=== PATIENT | female | born 1985 | race Caucasian/White ===

== ENCOUNTER → 2016-07-04 | Outpatient (CLI) | payer BC ==
--- OUTSIDE RECORDS SUMMARY | 2016-07-04 14:56 | XMS REPORT ---
Author Author IVAN FREIRE [facility] eClinicalWorks Address Unknown Phone Unavailable Care Team Providers Care Observation Assistant Name Role Phone IVAN FREIRE Unavailable Allergies No Known Allergies Problems Problem Type Condition ICD-9 Code Onset Dates Condition Status Problem Abnormal weight gain 783.1 Active Problem Unspecified disorder of skin and subcutaneous tissue 709.9 Active Problem Menstrual migraine, without mention of intractable migraine without mention of status migrainosus 346.40 Active Problem Unspecified breast screening V76.10 Active Problem General counseling for initiation of other contraceptive measures V25.02 Active Problem Headache 784.0 Active Problem Other malaise and fatigue 780.79 Active Problem General counseling for prescription of oral contraceptives V25.01 Active Problem Screening for malignant neoplasm of the cervix V76.2 Active Medications Medication Code System Code Instructions Start Date End Date Status Dosage Doxycycline Hyclate [facility] [address]-09 100 MG Orally Once a day Jan 29, 2015 1 capsule Results No Known Results Summary Purpose eClinicalWorks Submission
== END ==
LOC: ONC 14:41 → EDSTATUS 15:21
PROVIDERS: ATTEND Nurse Practitioner Adult Health
DX: Z80.0 Family history of malignant neoplasm of digestive organs (principal); Z80.3 Family history of malignant neoplasm of breast
CPT/HCPCS: 99213

== ENCOUNTER → 2016-10-10 | Outpatient (CLI) | payer BC ==
--- NOTE | 2016-10-10 18:23 | Diagnostic Imaging Report ---
INDICATION: Evaluation for size and dates. TECHNIQUE: Multiple real-time grayscale images were obtained of the gravid uterus. CORRELATION STUDY: None FINDINGS: Single viable intrauterine currently in variable presentation. There appears to be normal amount of amniotic fluid. The placenta is low-lying along its posterior aspect and does extend to the level of the cervix, may be reflective of underlying previa but somewhat indeterminate. anatomical structures have an unremarkable appearance. However, the cardiac structures cannot be well assessed at this time. Biometrical measurements are as follows: Biparietal diameter 4.61 cm, age 20 weeks 0 days . Head circumference 17.40 cm, age 20 weeks 0 days . Abdominal circumference 14.04 cm, age 19 weeks 3 days . Femur length 3.13 cm, age 19 weeks 6 days . Sonographic estimated age: 19 weeks 6 days. Sonographic estimated date of delivery: 02/28/2017. heart rate: 138 BPM Estimated Weight: 303 gm (+/- 44 gm) LMP Percentile: 25th% IMPRESSION: 1. Single intrauterine in a variable presentation. Sonographic estimated age of 19 weeks 6 days for an estimated date of delivery of 02/28/2017. 2. Very low-lying placenta with previa not excluded at this time. 3. Cardiac structures not well assessed on anatomical assessment. Dictated by: Dictated on workstation # [id number]
== END ==
LOC: RAD 17:24
PROVIDERS: ATTEND Obstetrics & Gynecology
DX: Z36 Encounter for antenatal screening of mother (principal); Z3A.19 19 weeks gestation of pregnancy
CPT/HCPCS: 76805

== ENCOUNTER → 2016-11-28 | Outpatient (CLI) | payer BC ==
--- NOTE | 2016-11-28 16:21 | Diagnostic Imaging Report ---
INDICATION: Followup low-lying placenta and four-chamber view TECHNIQUE: Multiple real-time grayscale images were obtained over the gravid uterus. COMPARISON: 10/10/16 FINDINGS: heart rate is 152 beats per minutes. The placenta is posterior and covers the internal os (placenta previa). The four-chamber view appears normal. A normal amount of amniotic fluid is seen. IMPRESSION: Placenta previa. Dr. Landaverde was informed of the findings at the time of dictation. Dictated by: Dictated on workstation # [id number]
== END ==
LOC: RAD 12:46
PROVIDERS: ATTEND Obstetrics & Gynecology
DX: O44.02 Complete placenta previa NOS or without hemorrhage, second trimester (principal); Z3A.00 Weeks of gestation of pregnancy not specified
CPT/HCPCS: 76816

== ENCOUNTER → 2016-12-27 | Outpatient (CLI) | payer BC ==
[~2016-12-27] MED LIST: DOCU100C37 PO; FERR-74 PO; HYDR-3812 PO; IBUP-1773 PO; PREN1TAB86 PO
--- NOTE | 2016-12-27 14:01 | Diagnostic Imaging Report ---
INDICATION: . TECHNIQUE: Multiple Real-time grayscale images were obtained over the gravid uterus. COMPARISON: None FINDINGS: There is a single living intrauterine is cephalic presentation. There is a normal volume of amniotic fluid. The placenta is seen in the lower uterine segment posteriorly. There does appear to be at least a marginal previa. The heart rate is 139 BPM and regular. IMPRESSION: Findings are suspect for an at least marginal placenta previa. Recommend clinical correlation and followup ultrasound as clinically warranted. Dictated by: Dictated on workstation # [id number]
== END ==
LOC: RAD 10:11
PROVIDERS: ATTEND Obstetrics & Gynecology
DX: Z36 Encounter for antenatal screening of mother (principal); Z3A.00 Weeks of gestation of pregnancy not specified
CPT/HCPCS: 76816

== ENCOUNTER 2017-01-31 10:10 | Inpatient (IN) | payer BC ==
[~2017-01-31] VITALS: Ht 160 cm; Wt 98.1 kg
[2017-01-31 10:13] VITALS: BP 127/89
[2017-01-31] MEDS ORDERED: LACTATED RINGERS 1,000 ML IV ONE (10:15)
[2017-01-31] MEDS: LACTATED RINGERS 1,000 ML IV PRN ×2 (10:30→11:55)
[2017-01-31] MEDS ORDERED: FAMOTIDINE 20MG/2ML IV (PEPCID) ONE (10:38)
[2017-01-31] MEDS ORDERED: CITRIC ACID/SOB CIT (BICITRA) 30 ML UDC ONE (10:38)
[2017-01-31] MEDS ORDERED: METOCLOPRAMIDE INJ 10 MG/2 ML (REGLAN) ONE (10:38)
[2017-01-31] MEDS ORDERED: ceFAZolin 2 GM/50 ML NS 50 ML ONE (10:39)
[2017-01-31] MEDS ORDERED: CITRIC ACID/SOB CIT (BICITRA) 30 ML UDC PO ONE (10:45)
[2017-01-31] MEDS ORDERED: FAMOTIDINE 20MG/2ML IV (PEPCID) IV ONE (10:45)
[2017-01-31] MEDS ORDERED: CATHETER FLUSH 10 ML SYR IV PRN (10:45)
[2017-01-31] MEDS ORDERED: METOCLOPRAMIDE INJ 10 MG/2 ML (REGLAN) IV ONE (10:45)
[2017-01-31 10:54] LABS: BASOPHILS % (AUTO) 0 % (0-10); EOSINOPHILS % (AUTO) 0 % (0-10); LYMPHOCYTES # (AUTO) 1.7 X 10^3 (1.0-4.0); LYMPHOCYTES % (AUTO) 14 % (12-44); MEAN CORPUSCULAR HEMOGLOBIN 32 PG (25-34); MEAN CORPUSCULAR HGB CONC 34 G/DL (32-36); MEAN CORPUSCULAR VOLUME 94 FL (80-99); MEAN PLATELET VOLUME 10.8 FL (7.4-10.4); MONOCYTES # (AUTO) 0.9 X 10^3 (0.0-1.0); MONOCYTES % (AUTO) 8 % (0-12); NEUTROPHILS # (AUTO) 9.6 X 10^3 (1.8-7.8); NEUTROPHILS % (AUTO) 78 % (42-75); PLATELET COUNT 220 10^3/uL (130-400); RED BLOOD COUNT 4.02 10^6/uL (4.35-5.85); RED CELL DISTRIBUTION WIDTH 13.3 % (10.0-14.5); WHITE BLOOD COUNT 12.3 10^3/uL (4.3-11.0)
[2017-01-31] MEDS ORDERED: ceFAZolin 2 GM/50 ML NS 50 ML IV ONE (11:00)
--- NOTE | 2017-01-31 11:04 | History & Physical-OB ---
OB - Chief Complaint & HPI Date/Time Date of Admission: Date of Admission: Jan 31, 2017 at 10:10 am Time Seen by Provider: 10:30 Chief Complaint/History OB-Reason for Admission/Chief: Bleeding and contractions with marginal previa Hx : 1 Hx Para: 0 Expected Date of Delivery: Jan 27, 2027 Gestational Age in Weeks: 36 Gestational Age in Days: 1 Other reason for admission: Presented with vaginal bleeding and cramping with known marginal previa at 36 weeks Admission Nurse Assessment Rev: Yes History of Labs O pos Antibody neg RI RPR NR HBsAg NR HIV NR GC neg GBS neg Allergies and Home Medications Allergies Coded Allergies: Sulfa (Sulfonamide Antibiotics) (Verified Allergy, Intermediate, hives, ) OB - History Hx of Present Care: Yes Ultrasounds: Normal mid trimester US (complete previa that transitioned to marginal posterior but <1 cm away from os last week on US.) Obstetrical Complications: Other (Placenta previa) Medical Complications: None Patient Past Medical History n/a OB - Admission Exam Physical Exam Date Seen by Provider: Jan 31, 2017 Time Seen by Provider: 10:30 HEENT: NCAT Heart: Rhythm Normal Lungs: Clear Abdomen: Gravid Extremities: Normal Reflexes: Normal Heart Rate: 130's Accelerations: No Accelerations Decelerations: No Decelerations Short Term Variability: Present Attorney General Variability: Minimal (3-5) Contractions on Admission: 6-10 Minutes Apart Intensity: Mild Labs Laboratory Tests Test 01/31/17 10:30 Range/Units White Blood Count 12.3 H 4.3-11.0 10^3/uL Red Blood Count 4.02 L 4.35-5.85 10^6/uL Hemoglobin 12.8 11.5-16.0 G/DL Hematocrit 38 35-52 % Mean Corpuscular Volume 94 80-99 FL Mean Corpuscular Hemoglobin 32 25-34 PG Mean Corpuscular Hemoglobin Concent 34 32-36 G/DL Red Cell Distribution Width 13.3 10.0-14.5 % Platelet Count 220 130-400 10^3/uL Mean Platelet Volume 10.8 H 7.4-10.4 FL Neutrophils (%) (Auto) 78 H 42-75 % Lymphocytes (%) (Auto) 14 12-44 % Monocytes (%) (Auto) 8 0-12 % Eosinophils (%) (Auto) 0 0-10 % Basophils (%) (Auto) 0 0-10 % Neutrophils # (Auto) 9.6 H 1.8-7.8 X 10^3 Lymphocytes # (Auto) 1.7 1.0-4.0 X 10^3 Monocytes # (Auto) 0.9 0.0-1.0 X 10^3 Eosinophils # (Auto) 0.0 0.0-0.3 10^3/uL Basophils # (Auto) 0.0 0.0-0.1 10^3/uL OB - Assessment/Plan/Diagnosis Assessment Assessment: vaginal bleeding Plan Plan: Section Discharge Diagnosis Diagnosis: 31 yo @ 36.1 Marginal placenta previa GBS neg CALEB SIDDIQI DO Jan 31, 2017 11:04 am
[2017-01-31] MEDS ORDERED: fentaNYL INJECTION 100 MCG/2 ML AMP ONE (11:09)
[2017-01-31] MEDS ORDERED: OXYTOCIN/NORMAL SALINE 1,000 ML IV ONE (11:14)
[2017-01-31 11:30] VITALS: BP 131/93
[2017-01-31] MEDS ORDERED: PREN1TAB86 PO (11:31)
[2017-01-31] MEDS ORDERED: ONDANSETRON 4 MG/2 ML (SDV) Z0FRAN ONE (12:09)
--- OUTSIDE RECORDS SUMMARY | 2017-01-31 12:21 | XMS REPORT ---
Author Author IVAN FREIRE [facility] eClinicalWorks Address Unknown Phone Unavailable Care Team Providers Care Cuff Folder Name Role Phone IVAN FREIRE Unavailable Allergies [...] Date End Date Status Dosage Doxycycline Hyclate [facility] [address]-26 100 MG Orally Once a day Jan 29, 2015 1 capsule Results No Known Results Summary Purpose eClinicalWorks Submission
--- OUTSIDE RECORDS SUMMARY | 2017-01-31 12:22 | XMS REPORT ---
Author Author IVAN FREIRE [facility] eClinicalWorks Address Unknown Phone Unavailable Care Team Providers Care Missile Technician Name Role Phone IVAN FREIRE CP Unavailable Allergies, Adverse Reactions, Alerts Substance Reaction Event Type N.K.D.A. Info Not Available Non Drug Allergy Problems Problem Type Condition Code Onset Dates Condition Status Assessment Encounter for surveillance of contraceptive pills Z30.41 Active Problem Abnormal weight gain 783.1 Active Problem [...] Instructions Start Date End Date Status Dosage Seasonique [facility] [address]-02 0.15 mg-30 mcg (84)/10 mcg (7) Orally Once a day (disp brand as written) Mar 05, 2014 take 1 tablet Procedures Procedure Coding System Code Date Preventive Care Est Pt. Age 18-39 CPT-4 08993 Mar 27, 2015 Vital Signs Date/Time: Mar 27, 2015 Temperature 98.2 F Weight 180 lbs Height 63.5 in BMI 31.38 Index Blood Pressure Diastolic 60 mmHg Blood Pressure Systolic 110 mmHg Cardiac Monitoring Heart Rate 80 bpm Results No Known Results Summary Purpose eClinicalWorks Submission
--- OUTSIDE RECORDS SUMMARY | 2017-01-31 12:22 | XMS REPORT | Continuity of Care Document ---
Author Author [facility] Address Unknown Phone Unavailable Allergies Active Description Code Type Severity Reaction Onset Reported/Identified Relationship to Patient Clinical Status Yes sulfamethoxazole-trimethoprim Drug Allergy N/A N/A 07/08/2008 Medications Problems Date Dx Coded Attending Type Code Diagnosis Diagnosed By 03/25/2008 NGUYỄN CASIANO APRN 780.2 SYNCOPE AND COLLAPSE 03/25/2008 TAMY ONEILL DO 780.2 SYNCOPE AND COLLAPSE 07/08/2008 NGUYỄN CASIANO APRN 465.9 UPPER RESPIRATORY INFECTION ACUTE 07/08/2008 NGUYỄN CASIANO APRN A 786.2 cough 07/08/2008 TAMY ONEILL DO 465.9 UPPER RESPIRATORY INFECTION ACUTE 07/08/2008 TAMY ONEILL DO 786.2 cough 07/30/2008 NGUYỄN CASIANO APRN V25.41 visit for: contraceptive surveillance pill 07/30/2008 TAMY ONEILL DO V25.41 visit for: contraceptive surveillance pill 05/12/2009 NGUYỄN CASIANO APRN V72.31 Pelvic Exam (Internal) 05/12/2009 TAMY ONEILL DO V72.31 Pelvic Exam (Internal) 07/15/2010 NGUYỄN CASIANO APRN A 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 07/15/2010 NGUYỄN CASIANO APRN A 698.9 UNSPECIFIED PRURITIC DISORDER 07/15/2010 TAMY ONEILL DO 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 07/15/2010 TAMY ONEILL DO 698.9 UNSPECIFIED PRURITIC DISORDER 03/15/2011 NGUYỄN CASIANO APRN 477.9 ALLERGIC RHINITIS CAUSE UNSPECIFIED 03/15/2011 TAMY ONEILL DO 477.9 ALLERGIC RHINITIS CAUSE UNSPECIFIED 07/05/2011 NGUYỄN CASIANO APRN A 709.9 SKIN LESIONS 07/05/2011 NGUYỄN CASIANO APRN 780.79 MALAISE AND FATIGUE 07/05/2011 OHNGUYỄN MELENDEZ APRN 783.1 WEIGHT GAIN ABNORMAL 07/05/2011 TAMY ONEILL DO 709.9 SKIN LESIONS 07/05/2011 TAMY ONEILL DO 780.79 MALAISE AND FATIGUE 07/05/2011 TAMY ONEILL DO 783.1 WEIGHT GAIN ABNORMAL 08/31/2011 OHNGUYỄN MELENDEZ APRN 784.0 headache 08/31/2011 TAMY ONEILL DO 784.0 headache 10/12/2011 OHNGUYỄN MELENDEZ APRN 346.40 MENSTRUAL MIGRAINE WITHOUT INTRACTABLE MIGRAINE WITHOUT MENTION OF STATUS MIGRAINOSUS 10/12/2011 NGUYỄN CASIANO APRN V25.02 CONTRACEPTION - ANY METHOD 10/12/2011 TAMY ONEILL DO 346.40 MENSTRUAL MIGRAINE WITHOUT INTRACTABLE MIGRAINE WITHOUT MENTION OF STATUS MIGRAINOSUS 10/12/2011 TAMY NOEILL DO V25.02 CONTRACEPTION - ANY METHOD 12/20/2012 NGUYỄN CASIANO APRN V25.01 CONTRACEPTION - ORAL CONTRACEPTION 12/20/2012 NGUYỄN CASIANO APRN V76.10 BREAST CANCER SCREENING 12/20/2012 NGUYỄN CASIANO APRN V76.2 CERVICAL CANCER SCREENING (PAP SMEAR) 12/20/2012 TAMY ONEILL DO V25.01 CONTRACEPTION - ORAL CONTRACEPTION 12/20/2012 TAMY ONEILL DO V76.10 BREAST CANCER SCREENING 12/20/2012 TAMY ONEILL DO V76.2 CERVICAL CANCER SCREENING (PAP SMEAR) Procedures Code [place] [address] TEST, URINE (IN-HOUSE) 03/05/2014 Results Encounters ACCT No. Visit Date/Time Discharge Status Pt. Type Provider Facility Loc./Unit Complaint [id number] 03/05/2014 09:57:00 03/05/2014 23: 59:59 CLS Outpatient TAMY ONEILL DO [id number] 12/20/2012 14:40:00 12/20/2012 23: 59:59 CLS Outpatient NGUYỄN CASIANO APRN
--- OUTSIDE RECORDS SUMMARY | 2017-01-31 12:22 | XMS REPORT ---
Author Author JOSE R LESTER Organization eClinicalWorks Address Unknown Phone Unavailable Care Team Providers Care Access Rn Name Role Phone JOSE R LESTER CP Unavailable Allergies, Adverse Reactions, Alerts Substance Reaction Event Type Bactrim DS hives Drug Allergy Problems Problem Type Condition Code Onset Dates Condition Status Assessment Acute rhinosinusitis J01.90 Active Problem Abnormal weight gain 783.1 Active [...] Instructions Start Date End Date Status Dosage Nasonex [facility] [address]-06 50 MCG/ACT Nasally Once a day May 24, 2015 2 sprays in each nostril Seasonique [facility] [address]-45 0.15 mg-30 mcg (84)/10 mcg (7) Orally Once a day (disp brand as written) Mar 05, 2014 take 1 tablet Claritin [facility] [address]-56 10 MG Orally Once a day May 24, 2015 Jun 23, 2015 1 tablet Procedures Procedure Coding System Code Date Office Visit, Est Pt., Level 3 CPT-4 04358 May 24, 2015 Vital Signs Date/Time: May 24, 2015 Temperature 98.4 F Weight 191 lbs Height 63.5 in BMI 33.30 Index Blood Pressure Diastolic 60 mmHg Blood Pressure Systolic 104 mmHg Cardiac Monitoring Heart Rate 102 bpm Results No Known Results Summary Purpose eClinicalWorks Submission
[2017-01-31] MEDS ORDERED: METHYLERGONOVINE 0.2 MG/ML (METHERGINE) AMP ONE (12:34)
[2017-01-31] MEDS ORDERED: OXYTOCIN/NORMAL SALINE 500 ML IV SCH (12:43)
[2017-01-31] MEDS ORDERED: ONDANSETRON 4 MG/2 ML (SDV) Z0FRAN IVP PRN (12:45)
[2017-01-31] MEDS ORDERED: HYDROmorphone (DILAUDID) 2 MG/ML VIAL IVP PRN (12:45)
[2017-01-31] MEDS ORDERED: TETANUS,DIPTH,PERTUSS P/F (BOOSTRIX) 0.5 ML VIAL IM SCH (12:45)
[2017-01-31] MEDS ORDERED: MEASLES,MUMPS,RUBELLA 1 EA INJ SC SCH (12:45)
--- NOTE | 2017-01-31 12:53 | Progress Note-Post Operative ---
Post-Operative Progess Note Surgeon (s)/[employer] (s) Surgeon CALEB SIDDIQI DO [employer]: Bela Fontaine Pre-Operative Diagnosis 36.1 week, Placenta previa, Vaginal bleeding Post-Operative Diagnosis same Procedure & Operative Findings Date of Procedure 01/31/17 Procedure Performed/Findings Procedure: Primary low transverse section [employer]: Rosalina CEDILLO Anesthesia: Spinal EBL: 1000 mL's Fluids: 1700 mL's of lactate ringer solution Urine output: 150 mL clear Indications: This 31-year-old female with a known placenta previa persistent to my office with vaginal bleeding she was sent immediately up to the labor and delivery unit. She reports the bleeding started out as start this morning however was bright red bleeding on examination. She had artery been scheduled for primary at 37 weeks due to placenta previa I discussed the patient risk of delivery at this point being 36 weeks. Risk of prematurity was discussed however contraindication to allowing the go further with further bleeding could result in damage to her or the . She was agreeable to proceed consent was obtained the preoperative area and patient was taken to the operating room. Operative report in detail: The patient was taken to the operating room where spinal analgesia is found to be adequate. She is placed in the supine position with a leftward tilt and prepped and draped in the normal sterile fashion. A timeout is performed. Anesthesia is tested. A Pfannenstiel skin incision is then made and carried down to the underlying fascia using the Bovie cautery. The fascial incision is extended laterally using Bovie cautery the superior aspect of the fascial incision is then grasped with [place] clamps and tented upward and dissected off the underlying rectus muscles. The inferior aspect of the fascial incision is then grasped with [place] clamps and tented upward and dissected off the underlying rectus muscles. The rectus muscles are then dissected down the midline using Roberts scissors which exposes the peritoneum. The peritoneum is entered bluntly and extended using traction. An Devin ring retractor is placed within the peritoneal incision which offers excellent lateral sidewall retraction. I then identified the lower uterine segment and make a low- transverse incision through the vesicouterine peritoneum, and bluntly dissect this off the lower uterine segment creating a bladder flap. I proceeded with my myotomy and encounter dense para [place] disease and placenta during my dissection. I am able to puncture through the uterus into the intrauterine cavity and extend the uterine incision laterally using banded scissors. Amniotomy is performed in this process. The infant is found in the complete breech presentation. The infant's feet are grasped and lifted up out of the incision and the infant is delivered up to the upper torso. At this point the is rotated to be facing downward and the arms are delivered by sweeping them across the chest. The 's head is then delivered using flexion and extension of the body in upward fashion. The 's nares and oropharynx are then bulb suctioned, the cord is doubly clamped and cut and the infant is handed off to Dr. solares. Cord blood is collected. Three-vessel cord with intact placenta is full delivered thereafter. IV Pitocin is initiated to facilitate uterine contractions. The uterus remained boggy during uterine repair and 0.2 mg of IM Methergine are administered by anesthesia. I didn't proceed with exteriorizing the uterus and clearing it of all endometrial clots and debris. I proceeded with closing the uterine incision using 0 Vicryl suture in a running locked fashion. A second layer of imbricating 0 Monocryl was placed excellent hemostasis is noted after doing this. The pelvis was then copiously irrigated using normal saline once again no active bleeding is noted from any of my dissection planes. I placed Interceed anti-adhesive over my low- transverse incision. I then proceeded with closing the peritoneum using 3-0 Vicryl suture in a running fashion. The rectus muscles are reapproximated using 3-0 Vicryl suture in an interrupted fashion. The fascia is reapproximated using 0 Vicryl suture in a running fashion. The subcutaneous tissue is reapproximated using 0 plain in an interrupted subcutaneous stitch. And the skin is reapproximated using 4-0 Monocryl in a running subcuticular. Dermabond is applied incision. A sterile dressing is that he is a white tape. 2 g of Ancef were given preoperative for infection prophylaxis. The patient tolerated the procedure well as taken to the recovery area in stable condition. Lap and sponge count is correct at the end of the procedure instrument count is correct as well. Anesthesia Type spinal Estimated Blood Loss Estimated blood loss (mL): 1000 Specimens/Packing Specimens Removed placenta CALEB SIDDIQI DO Jan 31, 2017 12:53
[2017-01-31] MEDS ORDERED: ONDANSETRON 4 MG/2 ML (SDV) Z0FRAN IV PRN (13:00)
[2017-01-31] MEDS ORDERED: NALOXONE 0.4 MG/ML 1 ML (NARCAN) VIAL IV PRN ×2 (13:00)
[2017-01-31] MEDS ORDERED: METOCLOPRAMIDE INJ 10 MG/2 ML (REGLAN) IV PRN (13:00)
[2017-01-31] MEDS ORDERED: diphenhydrAMINE 50 MG/ML INJ (BENADRYL) IV PRN (13:00)
[2017-01-31] MEDS ORDERED: morphine INJ 10 MG/ML 1ML (SYR OR VIAL) IVP PRN (13:00)
[2017-01-31] MEDS ORDERED: CATHETER FLUSH 10 ML SYR IV SCH (14:00)
[2017-01-31] MEDS: HYDROcodone/APAP 5 MG/325 MG (LORTAB) TAB PO PRN ×3 (14:13→22:20)
[2017-01-31 16:44] VITALS: BP 103/77
[2017-01-31] MEDS: KETOROLAC 30 MG/ML VIAL IVP SCH (18:43)
[2017-01-31 19:15] VITALS: BP 111/76
[2017-02-01] VITALS: BP 98/64
[2017-02-01] MEDS: KETOROLAC 30 MG/ML VIAL IVP SCH ×2 (00:01→06:03)
[2017-02-01] MEDS: DOCUSATE SODIUM 100 MG (COLACE) CAP PO SCH ×3 (00:01→20:13)
[2017-02-01 04:11] VITALS: BP 89/63
[2017-02-01 06:18] LABS: BASOPHILS % (AUTO) 0 % (0-10); EOSINOPHILS # (AUTO) 0.1 10^3/uL (0.0-0.3); EOSINOPHILS % (AUTO) 1 % (0-10); LYMPHOCYTES # (AUTO) 2.5 X 10^3 (1.0-4.0); LYMPHOCYTES % (AUTO) 18 % (12-44); MEAN CORPUSCULAR HEMOGLOBIN 32 PG (25-34); MEAN CORPUSCULAR HGB CONC 33 G/DL (32-36); MEAN CORPUSCULAR VOLUME 95 FL (80-99); MEAN PLATELET VOLUME 10.3 FL (7.4-10.4); MONOCYTES # (AUTO) 1.1 X 10^3 (0.0-1.0); MONOCYTES % (AUTO) 8 % (0-12); NEUTROPHILS % (AUTO) 73 % (42-75); PLATELET COUNT 182 10^3/uL (130-400); RED BLOOD COUNT 3.29 10^6/uL (4.35-5.85); RED CELL DISTRIBUTION WIDTH 13.1 % (10.0-14.5); WHITE BLOOD COUNT 13.6 10^3/uL (4.3-11.0)
[2017-02-01 07:45] VITALS: BP 121/79
[2017-02-01] MEDS: HYDROcodone/APAP 5 MG/325 MG (LORTAB) TAB PO PRN ×2 (07:47→20:14)
--- NOTE | 2017-02-01 11:34 | Anesthesia-Regional Post-Op ---
Regional Patient Condition Mental Status: Alert, Oriented x3 Circulation: Same as Pre-Op Headache: Absent Sensation: Full Recovery Motor Block: Absent Post Op Complications Complications None Follow Up Care/Instructions Patient Instructions None needed. Anesthesia/Patient Condition Patient is doing well, no complaints, stable vital signs, no apparent adverse anesthesia problems. No complications reported per nursing. JORGE ROMERO CRNA Feb 01, 2017 11:34
[2017-02-01 12:30] VITALS: BP 109/73
[2017-02-01] MEDS: IBUPROFEN 600 MG (MOTRIN) TAB PO SCH ×3 (12:36→20:13)
[2017-02-01 17:00] VITALS: BP 116/75
[2017-02-01 20:05] VITALS: BP 131/80
[2017-02-02 02:00] VITALS: BP 99/62
[2017-02-02] MEDS: IBUPROFEN 600 MG (MOTRIN) TAB PO SCH ×2 (02:06→09:23)
[2017-02-02 08:00] VITALS: BP 108/76
[2017-02-02] MEDS: HYDROcodone/APAP 5 MG/325 MG (LORTAB) TAB PO PRN (09:22)
[2017-02-02] MEDS: DOCUSATE SODIUM 100 MG (COLACE) CAP PO SCH (09:23)
[2017-02-02] MEDS ORDERED: DOCU100C37 PO (11:32)
[2017-02-02] MEDS ORDERED: FERR-74 PO (11:32)
[2017-02-02] MEDS ORDERED: IBUP-1773 PO (11:32)
[2017-02-02] MEDS ORDERED: HYDR-3812 PO (11:32)
--- NOTE | 2017-02-02 11:33 | Discharge Inst-Women's Service ---
Discharge Inst-Women's Serv Depart Medication/Instructions New, Converted or Re-Newed RX: RX on Chart Consults/Follow Up Additional Follow Up: Yes Orders/Referrals Dr. Siddiqi in 7-10 days and in 6 weeks Activity Activity: Activity as Tolerated Driving Instructions: No Driving for 1 Week NO SMOKING: NO SMOKING Nothing Inside Vagina: No Douching, No [place], No Tampons Diet Discharge Diet: No Restrictions Symptoms to Report to : Bleeding Excessive, Pain Increased, Fever Over 101 Degrees F, Vaginal Bleeding Increase, Questions/Concerns For Any Problems or Questions: Contact Your Physician Skin/Wound Care Infection Signs and Symptoms: Increased Redness, Foul Odor of Wound, Increased Drainage, Skin Itchy or Has a Rash, Increased Swelling, Temperature Above 101 F Operative Area Clean and Dry: Keep Incision Clean/Dry Stitches/Mayela/Dermabond: Dermabond, Care of Stitches Bathing Instructions: Shower (x 2 weeks) CALEB SIDDIQI DO Feb 02, 2017 11:33 am
[2017-02-02 12:00] VITALS: BP 100/70
--- NOTE | 2017-02-02 12:07 | Progress Note-Standard ---
Standard Progress Note Progress Notes/Assess & Plan Date Seen by Provider: Feb 02, 2017 Time Seen by Provider: 09:30 Progress/Assessment & Plan 02/01 note: late entry-> patient was doing well yesterday. She was ambulating and voiding freely. Lochia light. Pain well controlled. INcision: c/d/i 02/02 Patient continues to improve today. Ambulating and voiding freely. Lochia sand filler. Pain well controlled. Vital Sign - Last 24 Hours 02/01/17 02/01/17 02/01/17 02/02/17 12:30 17:00 20:05 02:00 Temp 99.2 98.5 98.0 97.8 Pulse 97 83 93 82 Resp 18 18 18 17 B/P (MAP) 109/73 116/75 131/80 99/62 Pulse Ox 97 98 98 98 O2 Delivery Room Air Room Air Room Air Room Air 02/02/17 08:00 Temp 97.0 Pulse 79 Resp 18 B/P (MAP) 108/76 Pulse Ox 97 O2 Delivery Room Air Incision: c/d/i Diagnosis: POD 2 PLTCS for placenta previa Acute blood loss anemia, replacing iron P: Anticipate dc later today PP/PO precautions CALEB SIDDIQI DO Feb 02, 2017 12:07 pm
[2017-02-02 16:27] VITALS: BP 100/70
== END 2017-02-02 16:55 | disposition home or self-care (01) | DRG 766 ==
LOC: LDRP 10:10
PROVIDERS: ADMIT Obstetrics & Gynecology; ATTEND Obstetrics & Gynecology
PROC: 10D00Z1 Extraction of Products of Conception, Low, Open Approach (ICD-10-PCS; principal; 2017-01-31 11:36)
DX: O44.33 Partial placenta previa with hemorrhage, third trimester (principal); O62.2 Other uterine inertia; O32.1XX0 Maternal care for breech presentation, not applicable or unspecified; Z37.0 Single live birth; Z3A.36 36 weeks gestation of pregnancy
CPT/HCPCS: 36415; 85025; 86850; 86900; 86901; 94664

== ENCOUNTER → 2019-11-08 | Outpatient (CLI) | payer BC ==
[~2019-11-08] MED LIST changes: +ACHD5005 PO; -FERR-74 PO; +FERR325T18 PO; -HYDR-3812 PO
--- NOTE | 2019-11-08 15:16 | Diagnostic Imaging Report ---
EXAMINATION: US abdomen limited. TECHNIQUE: Multiple real-time grayscale images were obtained over the right upper quadrant in various projections. HISTORY: Right upper quadrant. COMPARISON: None available. FINDINGS: The liver is normal in size. The liver is normal in echogenicity. No focal lesions are seen. The portal vein is patent with hepatopedal flow. Gallbladder is normal without wall thickening or pericholecystic fluid. Sonographic [place] sign is negative. Common duct measures 2 mm. There is no biliary ductal dilation. Pancreas is not well seen. The right kidney is normal without hydronephrosis. IMPRESSION: Unremarkable right upper quadrant ultrasound. Dictated by: Dictated on workstation # [id number]
== END ==
LOC: RAD 14:02
DX: R10.11 Right upper quadrant pain (principal)
CPT/HCPCS: 76705